=== PATIENT | female | born 1935 | race African-American/Black ===

== ENCOUNTER 2025-04-04 12:08 | Emergency (ER) | payer MEDICARE, BC, SELFPAY ==
[2025-04-04 12:09] VITALS: BP 220/99
[2025-04-04 13:06] VITALS: BP 205/68
--- NOTE | 2025-04-04 13:41 | ED.GENMED ---
History of Present Illness
General
Chief Complaint: Blood Pressure Problem
Source: patient and family (Daughter)
Time Seen by Provider: 04/04/25 13:28
History of Present Illness
History of Present Illness:
89-year-old female asymptomatic but had elevated blood pressure eating a physical and history for impending hip surgery. She missed her morning medications. Morning blood pressure medications include amlodipine 5 mg tablet before noon. Clonidine
0.2 mg p.o. before noon. Valsartan 320 mg 1 tablet before noon. Lasix 40 mg 1 p.o. daily before noon. She denies chest pain shortness of breath headache visual issues shortness of breath abdominal pain or other
Past History
Past History
ED Past Medical History: HTN, Hypercholesterolemia and NIDDM
ED Past Surgical History: Gynecological and Other (Cataract surgery)
Review of Systems
Review of Systems
All Other Systems: Not applicable
Respiratory: Reports no symptoms
Cardiac: Reports no symptoms
ABD/GI: Reports no symptoms
Phy Exam
Physical Exam
Physical Exam:
GENERAL: Alert and oriented in no apparent distress
EYE: Orbits normal.
NECK: Supple
CARDIAC: Regular rate and rhythm without any obvious murmurs.
LUNGS: Clear breath sounds,normal
ABDOMEN: Soft, without focal tenderness or distention
NEUROLOGICAL: Alert and oriented , grossly non-focal
SKIN: Warm and dry, no rash or lesion, no discoloration, skin intact.
MUSCULOSKELETAL: Mild edema
PSYCH: Normal and appropriate interaction.
Course
Orders/Labs/Results
Orders:
Orders
04/04/25 13:39
Amlodipine [Norvasc] 5 mg PO NOW STA
Clonidine [Catapres] 0.2 mg PO NOW STA
Furosemide [Lasix] 40 mg PO NOW STA
Valsartan [Diovan] 320 mg PO NOW STA
Vital Signs
Initial and Last Documented VS:
Initial Vital Signs
Temp Pulse Resp BP Pulse Ox
98.0 F 98 16 220/99 98
04/04/25 12:09 04/04/25 12:09 04/04/25 12:09 04/04/25 12:09 04/04/25 12:09
Last Documented Vital Signs
Temp Pulse Resp BP Pulse Ox
98.0 F 98 16 167/66 99
04/04/25 12:09 04/04/25 12:09 04/04/25 12:09 04/04/25 15:30 04/04/25 15:30
*Pulse Oximetry
SaO2: 98
Oxygen Mode of Delivery: Room air
Patient hypoxic: no (98)
*Critical Care Note
Total Time (30-74mins, 75-104mins- exclusive of procedures): Not Applicable
Update Note
Update Note:
Blood pressure improved. Patient stable. No symptoms. Discharged to follow-up.
ED Attending Note
-
Portions of this chart may have been created with voice recognition software.� Occasional wrong word or��sound alike� substitutions may have occurred due to the inherent limitations of voice recognition software.
Discharge Plan
Departure
Patient Disposition: Home (Routine Discharge)
Date of Disposition: 04/04/25
Time of Disposition: 15:57
Patient with high blood pressure during this ER visit?: Yes
Discharge Problem:
Blood pressure elevation, Likely secondary to medication issue, Anemia
Instructions: High Blood Pressure (DC), BLOOD PRESSURE
Prescriptions:
No Action
furosemide 40 mg Tablet
40 mg PO DAILY
anastrozole 1 mg Tablet
1 mg PO NOON
atorvastatin 10 mg Tablet
10 mg PO HS
amlodipine 5 mg Tablet
5 mg PO DAILY
tramadol 50 mg Tablet
50 mg PO Q6H PRN (Reason: pain)
clonidine HCl 0.2 mg Tablet
0.2 mg PO BID
valsartan 320 mg Tablet
320 mg PO DAILY
pioglitazone 30 mg Tablet
30 mg PO DAILY
cholecalciferol (vitamin D3) [Vitamin D3] 50 mcg (2,000 unit) Capsule
50 mcg PO DAILY
mupirocin 2 % ointment
1 applic topical BID Qty: 1 0RF
tramadol 50 mg tablet
50 mg PO Q6H PRN (Reason: 1 tab moderate pain, 2 if severe) Qty: 30 0RF
Rx Instructions:
ongoing therapy
POST-OP USE ONLY
cefadroxil 500 mg capsule
500 mg PO BID Qty: 14 0RF
Rx Instructions:
*Take w/ food
*Take w/ probiotic
*POST-OP USE
gabapentin 300 mg capsule
300 mg PO HS Qty: 10 0RF
Rx Instructions:
*POST-OP USE ONLY
ondansetron [ondansetron] 4 mg tablet,disintegrating
4 mg PO Q6H PRN (Reason: n/v) Qty: 20 0RF
Rx Instructions:
take 1/2h b/f pain med if recurrent nausea
allow to dissolve in mouth w/o water
famotidine 20 mg tablet
20 mg PO HS Qty: 30 0RF
Rx Instructions:
post-op
Referrals:
Manju Sauceda MD [Family Provider] - Follow up in 2-3 days
Activity Restrictions/Additional Instructions:
Follow-up your blood pressure and anemia with your primary physician
Interventions
Interventions:
*Risk Screen - Suicide Last Done: 04/04/25 12:09
*Neglect/Abuse Screening Last Done: 04/04/25 12:09
ED- Cardiac Assessment Last Done: 04/04/25 13:56
ED- Neurological Assessment Last Done: 04/04/25 13:56
ED- Pulmonary Assessment Last Done: 04/04/25 13:56
Discharge Date and Time
Print Language: SINHALA
[2025-04-04] MEDS: DIOVAN 320 MG PO (13:48)
[2025-04-04] MEDS: CATAPRES 0.2 MG PO (13:48)
[2025-04-04] MEDS: LASIX 40 MG PO (13:48)
[2025-04-04] MEDS: NORVASC 5 MG PO (13:48)
[2025-04-04 14:00] VITALS: BP 192/85
[2025-04-04 14:30] VITALS: BP 194/77
[2025-04-04 15:08] VITALS: BP 168/72
[2025-04-04 15:30] VITALS: BP 167/66
== END 2025-04-04 16:55 | disposition home or self-care (01) ==
LOC: EMR 12:08
PROVIDERS: EMERGENCY PHYSICIAN Emergency Medicine; FAMILY PHYSICIAN Family Medicine
DX: D64.9 Anemia, unspecified (principal); I10 Essential (primary) hypertension; E78.00 Pure hypercholesterolemia, unspecified; E11.9 Type 2 diabetes mellitus without complications; Z79.899 Other long term (current) drug therapy; Z98.49 Cataract extraction status, unspecified eye
CPT/HCPCS: 99282

== ENCOUNTER 2025-04-10 10:29 | Inpatient (IN) | payer MEDICARE, BC, SELFPAY ==
--- NOTE | 2025-02-20 13:03 | CM ---
Cm reviewed medical records. CM spoke with patient via live telephone. Patient confirmed demographics. Patient lives independently alone. Patient reports she does not have any stairs to negotiate. Patient has has a history of VN, but cannot remember
the agency. She reports it was set up by [facility].
Patient has a cane and rollator. CM encouraged patient to review educational packet from [employer] and review required DME. Patient is also going to work on making outpatient PT appointments. She reports her daughters will be able to assist with
transportation.
PLAN: Home with family support and outpatient PT.
[2025-04-04 11:35] LABS: Hematocrit 28.1 % (37.0-47.0); Hemoglobin 9.0 g/dL (12.0-16.0); Mean Corp Hgb Conc. 32.0 g/dL (33.0-37.0); Mean Corpuscular Volume 89.5 fL (81.0-99.0); Platelet Count 342 10^3/uL (130-400); Red Cell Dist. Width 15.7 % (11.5-14.5)
[2025-04-04 12:26] LABS: ALT (SGPT) 15 U/L (0-35); AST (SGOT) 22 U/L (14-36); Albumin 4.1 g/dl (3.5-5.0); Alkaline Phosphatase 97 U/L (38-126); Blood Urea Nitrogen 24 mg/dl (7-17); Calcium 10.2 mg/dl (8.4-10.2); Carbon Dioxide 27 mmol/L (22-30); Chloride 106 mmol/L (98-107); Glucose 99 mg/dl (70-99); Potassium 3.7 mmol/L (3.5-5.1); Sodium 138 mmol/L (135-145); Total Protein 6.9 g/dl (6.3-8.2); eGFR 48.63
[2025-04-04 12:39] LABS: Glycohemoglobin (HgbA1c) 6.5 % (4.0-5.6)
[2025-04-04 14:16] VITALS: BMI 30.1
[2025-04-05 16:24] VITALS: BMI 30.1
--- NOTE | 2025-04-06 16:34 | CM ---
Addendum entered by Elena Alatorre RN 04/07/25 12:16:
Patient's daughter called this CM with 4 choices for SNF. CM sent preliminary referrals via [facility] to:
[facility].
Original Note:
CM spoke with patient's daughter who stated that patient is unable to care for herself post operatively and family will not be available to assist. Daughter requested [facility]. CM advised [facility] is not the appropriate level of care. Patient would need
SNF> CM encourage daughter to review medicare.gov for further SNF choices.
CM updated [facility] with change in discharge plan.
[2025-04-10] VITALS (21 sets, daily range): BP systolic 121–213; BP diastolic 48–104; PULSE 79; O2SAT 100; BMI 30.1
[2025-04-10] MEDS: TYLENOL 650 MG PO ×3 (11:16→20:45)
[2025-04-10] MEDS: NORMOSOL-R/PLASMALYTE-A 1000 IV ×2 (11:16→17:56)
[2025-04-10 11:19] LABS: Glucose - Point of Care 101 mg/dl (70-99)
--- NOTE | 2025-04-10 11:40 | CM ---
CM spoke with patient's daughter via phone. CM confirmed that [facility] has accepted patient.
PLAN: SNF
[2025-04-10] MEDS: CELEBREX 200 MG PO (12:25)
[2025-04-10 13:21] LABS: Glucose - Point of Care 86 mg/dl (70-99)
--- NOTE | 2025-04-10 13:51 | W.PN.ORTHO ---
Today's Communication / Plan
-
d/c when stable
Assessment
.
Dressing:
Clean, dry and intact.
Assessment:
CKD 3, renal biopsy pending- no NSAIDs
Non insulin-dependent diabetes, A1c 6.5-resume oral hypoglycemics and + Novolog coverage-Cefadroxil ppx OP Rx
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
Anemia
-monitor Hgb
Plan
.
Surgery / Date: R BETZY Dr Cobian 04/10/25
DVT Prophylaxis: Aspirin
Activity:
Out of bed.
PT/OT
Discharge Plan: Home w/ VN
Vital Signs and Labs
.
Vital Signs and Labs:
Lab Results
04/04/25 11:11
04/04/25 11:11
Temp Pulse Resp BP Pulse Ox
98.5 F 100 16 176/84 99
04/10/25 11:14 04/10/25 11:14 04/10/25 11:14 04/10/25 11:14 04/10/25 11:14
--- NOTE | 2025-04-10 14:12 | W.DS.TRANS ---
DC Summary - Bit Sharpener
-
Discharge Instructions:
Sleep Apnea Risk Low
Discharge Diagnosis/Procedures R BETZY Dr Cobian 04/10/25
Diet Diabetic, Carb Controlled
Activity With Walker
Driving Restrictions No driving
Bathing Restrictions OK to Shower
Other Services PT,VN,OT
Instructions:
Stand-Alone Forms: Total Hip/Knee Replacement D/C
Changes to Home Medications: Yes
Discharge Medications:
DC Medications w/original date entered in [employer] App
amlodipine 5 mg tablet 5 mg PO DAILY 03/31/25
anastrozole 1 mg tablet 1 mg PO NOON 03/31/25
atorvastatin 10 mg tablet 10 mg PO HS 03/31/25
cholecalciferol (vitamin D3) 50 mcg (2,000 unit) capsule (Vitamin D3) 50 mcg PO DAILY 03/31/25
clonidine HCl 0.2 mg tablet 0.2 mg PO BID 03/31/25
furosemide 40 mg tablet 40 mg PO DAILY 03/31/25
pioglitazone 30 mg tablet 30 mg PO DAILY 03/31/25
cefadroxil 500 mg capsule 500 mg PO BID infection prevention #14 caps 04/04/25
famotidine 20 mg tablet 20 mg PO HS GI prophylaxis #30 tabs 04/04/25
gabapentin 300 mg capsule 300 mg PO HS sleep/pain #10 caps 04/04/25
mupirocin 2 % topical ointment 1 applic topical BID infection prevention #1 tube 04/04/25
ondansetron 4 mg disintegrating tablet 4 mg PO Q6H PRN n/v #20 tabs 04/04/25
tramadol 50 mg tablet 50 mg PO Q6H PRN 1 tab moderate pain, 2 if severe #30 tabs 04/04/25
Saccharomyces boulardii 250 mg capsule (Florastor) 250 mg PO BID #1 cap 04/10/25
acetaminophen 325 mg tablet (Tylenol) 650 mg (2 x 325 mg) PO QID #1 tab 04/10/25
aspirin 325 mg tablet 325 mg PO DAILY blood clot prevention #1 tab 04/10/25
docusate sodium 100 mg capsule (Colace) 100 mg PO BID stool softner #1 cap 04/10/25
magnesium hydroxide 400 mg/5 mL oral suspension (Milk of Magnesia) 30 ml PO HS PRN constipation #1 mL 04/10/25
sennosides 8.6 mg tablet (Senokot) 17.2 mg (2 x 8.6 mg) PO BID laxative #2 tabs 04/10/25
valsartan 320 mg tablet 320 mg PO DAILY #0 tabs 04/10/25
Home Medication Changes
cefadroxil 500 mg capsule 500 mg PO BID infection prevention #14 caps 04/04/25
famotidine 20 mg tablet 20 mg PO HS GI prophylaxis #30 tabs 04/04/25
gabapentin 300 mg capsule 300 mg PO HS sleep/pain #10 caps 04/04/25
mupirocin 2 % topical ointment 1 applic topical BID infection prevention #1 tube 04/04/25
ondansetron 4 mg disintegrating tablet 4 mg PO Q6H PRN n/v #20 tabs 04/04/25
tramadol 50 mg tablet 50 mg PO Q6H PRN 1 tab moderate pain, 2 if severe #30 tabs 04/04/25
Saccharomyces boulardii 250 mg capsule (Florastor) 250 mg PO BID #1 cap 04/10/25
acetaminophen 325 mg tablet (Tylenol) 650 mg (2 x 325 mg) PO QID #1 tab 04/10/25
aspirin 325 mg tablet 325 mg PO DAILY blood clot prevention #1 tab 04/10/25
docusate sodium 100 mg capsule (Colace) 100 mg PO BID stool softner #1 cap 04/10/25
magnesium hydroxide 400 mg/5 mL oral suspension (Milk of Magnesia) 30 ml PO HS PRN constipation #1 mL 04/10/25
sennosides 8.6 mg tablet (Senokot) 17.2 mg (2 x 8.6 mg) PO BID laxative #2 tabs 04/10/25
valsartan 320 mg tablet 320 mg PO DAILY #0 tabs 04/10/25
Pending Results: No
[2025-04-10 15:28] LABS: Glucose - Point of Care 90 mg/dl (70-99)
[2025-04-10] MEDS: SUBLIMAZE 25 MCG IV ×2 (15:51→16:01)
[2025-04-10] MEDS: DILAUDID 0.25 MG IV (16:45)
[2025-04-10] MEDS: TRANDATE 5 MG IV ×2 (16:47→17:12)
[2025-04-10] MEDS: ULTRAM 50 MG PO (17:06)
--- NOTE | 2025-04-10 17:55 | PTCARENOTE ---
Pt received from the PACU via bed. Transport was w/o incident. Pt is AAOx3, HRR, lungs are coarse anteriorly and clear b/l posterior lung nathan. Resp. easy Pulse ox 96%RA. Pt's right hip w/ scant drainage on Primaseal antibacterial dressing.
Dressing intact., Pt reports pain 4/10 at present, denies nausea. Will medicated for pain as ordered. Pt and Pt's family instructed on plan of care. Pt and family verbalized understanding of instructions. Call rizvi is within reach.
[2025-04-10 18:14] LABS: Glucose - Point of Care 130 mg/dl (70-99)
[2025-04-10] MEDS: NOVOLOG FLEXPEN-MODERATE RESISTANCE SC (18:14)
[2025-04-10] MEDS: ACTOS 30 MG PO (18:20)
[2025-04-10] MEDS: ASPIRIN 325 MG PO (18:20)
[2025-04-10] MEDS: NOVOLOG FLEXPEN 4 UNITS SC (18:49)
[2025-04-10] MEDS: BACTROBAN 2% OINTMENT 1 APPLIC NASAL (20:45)
[2025-04-10] MEDS: COLACE 100 MG PO (20:45)
[2025-04-10] MEDS: CATAPRES 0.2 MG PO (20:45)
[2025-04-10] MEDS: SENOKOT 17.2 MG PO (20:46)
[2025-04-10] MEDS: ARIMIDEX 1 MG PO (20:46)
[2025-04-10] MEDS: LIPITOR 10 MG PO (21:00)
[2025-04-10] MEDS: PEPCID 20 MG PO (21:00)
[2025-04-10] MEDS: NEURONTIN 300 MG PO (21:00)
[2025-04-10] MEDS: ANCEF 5 IV (21:05)
[2025-04-10 21:36] LABS: Glucose - Point of Care 142 mg/dl (70-99)
[2025-04-11] VITALS (13 sets, daily range): BP systolic 117–165; BP diastolic 44–70; PULSE 50–71; O2SAT 98–100
[2025-04-11] MEDS: TYLENOL 650 MG PO ×6 (00:25→20:26)
[2025-04-11] MEDS: ANCEF 5 IV (05:15)
[2025-04-11 06:42] LABS: Hematocrit 23.2 % (37.0-47.0); Hemoglobin 7.4 g/dL (12.0-16.0)
[2025-04-11 07:21] LABS: Glucose - Point of Care 149 mg/dl (70-99)
[2025-04-11 07:51] LABS: Hematocrit 22.8 % (37.0-47.0); Hemoglobin 7.5 g/dL (12.0-16.0)
[2025-04-11] MEDS: NOVOLOG FLEXPEN 4 UNITS SC ×3 (08:35→17:05)
[2025-04-11] MEDS: DIOVAN 320 MG PO (08:36)
[2025-04-11] MEDS: ACTOS 30 MG PO (08:36)
[2025-04-11] MEDS: CATAPRES 0.2 MG PO ×2 (08:36→20:23)
[2025-04-11] MEDS: SENOKOT 17.2 MG PO ×2 (08:37→20:26)
[2025-04-11] MEDS: BACTROBAN 2% OINTMENT 1 APPLIC NASAL ×2 (08:37→20:23)
[2025-04-11] MEDS: COLACE 100 MG PO ×2 (08:37→20:26)
[2025-04-11] MEDS: NORVASC 5 MG PO (08:37)
[2025-04-11] MEDS: ASPIRIN 325 MG PO (08:37)
[2025-04-11] MEDS: NOVOLOG FLEXPEN-MODERATE RESISTANCE SC ×2 (08:38→17:05)
--- NOTE | 2025-04-11 09:39 | CM ---
Cm reviewed medical records. CM met with patient in room. Plan for discharge to SNF.
PLAN: SNF, [facility].
--- NOTE | 2025-04-11 12:29 | W.PN.ORTHO ---
Today's Communication / Plan
-
-d/c when stable-home PT/OT/VN
Assessment
.
Distal Motor Intact: Yes
Dressing:
Clean, dry and intact.
Assessment:
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
Chronic Anemia-multifactorial due to renal disease and secondary to above
-Acute p/o blood loss anemia POD#1--patient will not be able to compensate due to myelodysplasia--she is symptomatic
-transfuse 2Units PRBCs
CKD 3, renal biopsy pending- no NSAIDs
Non insulin-dependent diabetes, A1c 6.5-resume oral hypoglycemics and + Novolog coverage-Cefadroxil ppx OP Rx
-sugars stable
HTN-accelerated both pre and [id number] improved which I suspect is due to blood loss
-she will receive Lasix 40mg IV b/w units of blood to avoid volume overload, worsening peripheral edema and to control BP.
Plan
.
Surgery / Date: R BETZY Dr Cobian 04/10/25
DVT Prophylaxis: Aspirin
Activity:
Out of bed.
PT/OT
Discharge Plan: Home w/ VN
Subjective
.
.:
Fatigued and weak.
Vital Signs and Labs
.
Vital Signs and Labs:
Lab Results
04/11/25 07:35
04/04/25 11:11
Temp Pulse Resp BP Pulse Ox
97.9 F 55 16 123/49 93
04/11/25 11:51 04/11/25 11:51 04/11/25 11:51 04/11/25 11:51 04/11/25 07:10
Non-invasive Hgb result: 9.0
Physical Exam
-
HEENT: No pallor, cyanosis, or jaundice. Throat clear.
NECK: Supple. No JVD.
RESPIRATORY: Lungs clear to auscultation.
CVS: S1, S2 normal. RRR.� No murmur, rub or gallop.
ABDOMEN: Soft, non-tender. No distension. BS+/normal.
EXTREMITIES: strength equal, no calf pain with palpation
HEAVY MEDIA OPERATOR: AOx3. No focal deficits. fuel quality tech grossly intact
[2025-04-11 12:36] LABS: Glucose - Point of Care 171 mg/dl (70-99)
[2025-04-11] MEDS: ARIMIDEX 1 MG PO (13:27)
[2025-04-11] MEDS: NOVOLOG FLEXPEN-MODERATE RESISTANCE 1 UNITS SC (13:29)
[2025-04-11] MEDS: LASIX 40 MG IV (13:51)
[2025-04-11 16:18] LABS: Glucose - Point of Care 135 mg/dl (70-99)
[2025-04-11] MEDS: NEURONTIN 300 MG PO (21:33)
[2025-04-11] MEDS: PEPCID 20 MG PO (21:33)
[2025-04-11] MEDS: LIPITOR 10 MG PO (21:33)
[2025-04-11 21:56] LABS: Glucose - Point of Care 177 mg/dl (70-99)
[2025-04-12] MEDS: TYLENOL PO ×2 (00:20→04:45)
[2025-04-12 07:09] LABS: Glucose - Point of Care 93 mg/dl (70-99)
[2025-04-12 07:40] VITALS: BP 133/57
[2025-04-12 08:29] LABS: Hemoglobin 9.8 g/dL (12.0-16.0)
[2025-04-12 08:50] VITALS: BP 143/62; BP 154/64; PULSE 48; PULSE 55; O2SAT 99
[2025-04-12] MEDS: NOVOLOG FLEXPEN-MODERATE RESISTANCE SC ×3 (09:13→17:07)
[2025-04-12] MEDS: COLACE 100 MG PO ×2 (09:16→20:54)
[2025-04-12] MEDS: ASPIRIN 325 MG PO (09:16)
[2025-04-12] MEDS: SENOKOT 17.2 MG PO ×2 (09:16→20:54)
[2025-04-12] MEDS: ACTOS PO (09:19)
[2025-04-12] MEDS: NOVOLOG FLEXPEN SC ×2 (09:19→12:36)
[2025-04-12] MEDS: CATAPRES PO (09:20)
[2025-04-12] MEDS: TYLENOL 650 MG PO ×4 (09:21→20:54)
[2025-04-12] MEDS: NORVASC PO (09:21)
[2025-04-12] MEDS: DIOVAN PO (11:41)
[2025-04-12 11:45] VITALS: BP 152/53; PULSE 60; O2SAT 97
[2025-04-12 12:05] LABS: Glucose - Point of Care 128 mg/dl (70-99)
--- NOTE | 2025-04-12 12:23 | W.PN.ORTHO ---
Today's Communication / Plan
-
d/c am if stable
Assessment
.
Distal Motor Intact: Yes
Dressing:
Clean, dry and intact.
Assessment:
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
Chronic Anemia-multifactorial due to renal disease and secondary to above
-Acute p/o blood loss anemia POD#1--patient will not be able to compensate due to myelodysplasia--she is symptomatic
-transfuse 2Units PRBCs-HGB stable-repeat in am POD#3
CKD 3, renal biopsy pending- no NSAIDs
Non insulin-dependent diabetes, A1c 6.5-resume oral hypoglycemics and + Novolog coverage-Cefadroxil ppx OP Rx
-sugars stable
HTN-accelerated both pre and [id number] improved which I suspect is due to blood loss
-she will receive Lasix 40mg IV b/w units of blood to avoid volume overload, worsening peripheral edema and to control BP.
Plan
.
Surgery / Date: R BETZY Dr Cobian 04/10/25
DVT Prophylaxis: Aspirin
Activity:
Out of bed.
PT/OT
Discharge Plan: SNF
Subjective
.
.:
Patient resting comfortably.
Vital Signs and Labs
.
Vital Signs and Labs:
Lab Results
04/12/25 06:21
04/04/25 11:11
Temp Pulse Resp BP Pulse Ox
97.5 F 57 15 133/57 95
04/12/25 07:40 04/12/25 07:40 04/12/25 07:40 04/12/25 07:40 04/11/25 23:18
Non-invasive Hgb result: 11.9
Physical Exam
-
HEENT: No pallor, cyanosis, or jaundice. Throat clear.
NECK: Supple. No JVD.
RESPIRATORY: Lungs clear to auscultation.
CVS: S1, S2 normal. RRR.� No murmur, rub or gallop.
ABDOMEN: Soft, non-tender. No distension. BS+/normal.
EXTREMITIES: strength equal, no calf pain with palpation
CLOTH CLASSER: AOx3. No focal deficits. computer forensics technician grossly intact
[2025-04-12] MEDS: LASIX 20 MG PO (12:43)
[2025-04-12] MEDS: ARIMIDEX 1 MG PO (12:43)
--- NOTE | 2025-04-12 13:22 | CM ---
CM left message for admission coordinator at [facility].
PLAN: DC to [facility].
--- NOTE | 2025-04-12 13:50 | CM ---
Addendum entered by Elena Alatorre RN 04/13/25 09:23:
Cm updated patient's daughter with discharge plan.
Addendum entered by Elena Alatorre RN 04/12/25 13:57:
Cm left message to updated Rosemarie, daughter, with discharge plans.
Original Note:
[facility]
Report:
[phone]

Admission coordinator is requesting a 12:30 product picker. CM update community health program representative.
[2025-04-12 15:40] VITALS: BP 153/59
[2025-04-12 16:58] LABS: Glucose - Point of Care 118 mg/dl (70-99)
[2025-04-12] MEDS: CATAPRES 0.2 MG PO (20:54)
[2025-04-12] MEDS: NEURONTIN 300 MG PO (21:52)
[2025-04-12] MEDS: LIPITOR 10 MG PO (21:52)
[2025-04-12] MEDS: PEPCID 20 MG PO (21:52)
[2025-04-12 22:19] LABS: Glucose - Point of Care 156 mg/dl (70-99)
[2025-04-12 23:30] VITALS: BP 118/51
[2025-04-13] MEDS: TYLENOL 650 MG PO ×3 (00:14→09:15)
[2025-04-13 07:00] VITALS: BP 149/60
[2025-04-13 07:43] LABS: Glucose - Point of Care 94 mg/dl (70-99)
[2025-04-13 07:52] LABS: Hematocrit 28.0 % (37.0-47.0); Hemoglobin 9.6 g/dL (12.0-16.0)
[2025-04-13] MEDS: NOVOLOG FLEXPEN-MODERATE RESISTANCE SC (08:18)
[2025-04-13] MEDS: ASPIRIN 325 MG PO (09:14)
[2025-04-13] MEDS: COLACE 100 MG PO (09:14)
[2025-04-13] MEDS: SENOKOT 17.2 MG PO (09:14)
[2025-04-13] MEDS: LASIX 20 MG PO (09:14)
[2025-04-13] MEDS: NORVASC PO (09:15)
[2025-04-13] MEDS: CATAPRES PO (09:15)
[2025-04-13] MEDS: DIOVAN 320 MG PO (09:15)
[2025-04-13] MEDS: ACTOS PO (09:15)
--- NOTE | 2025-04-13 11:19 | W.PN.ORTHO ---
Today's Communication / Plan
-
d/c
Assessment
.
Distal Motor Intact: Yes
Dressing:
Clean, dry and intact.
Assessment:
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
Chronic Anemia-multifactorial due to renal disease and secondary to above
-Acute p/o blood loss anemia POD#1--patient will not be able to compensate due to myelodysplasia--she is symptomatic
-transfuse 2Units PRBCs-HGB stable
CKD 3, renal biopsy pending- no NSAIDs
Non insulin-dependent diabetes, A1c 6.5-resume oral hypoglycemics and + Novolog coverage-Cefadroxil ppx OP Rx
-sugars stable
HTN-accelerated both pre and [id number] improved which I suspect is due to blood loss
-she will receive Lasix 40mg IV b/w units of blood to avoid volume overload, worsening peripheral edema and to control BP.
-BP stable
Plan
.
Surgery / Date: R BETZY Cobian 04/10/25
DVT Prophylaxis: Aspirin
Activity:
Out of bed.
PT/OT
Discharge Plan: SNF
Subjective
.
.:
Patient resting comfortably.
Vital Signs and Labs
.
Vital Signs and Labs:
Lab Results
04/13/25 06:50
04/04/25 11:11
Temp Pulse Resp BP Pulse Ox
98.5 F 75 16 149/60 94
04/13/25 07:00 04/13/25 09:14 04/13/25 07:00 04/13/25 09:14 04/13/25 07:00
Non-invasive Hgb result: 8.7
Physical Exam
-
HEENT: No pallor, cyanosis, or jaundice. Throat clear.
NECK: Supple. No JVD.
RESPIRATORY: Lungs clear to auscultation.
CVS: S1, S2 normal. RRR.� No murmur, rub or gallop.
ABDOMEN: Soft, non-tender. No distension. BS+/normal.
EXTREMITIES: strength equal, no calf pain with palpation
UPSETTING MACHINE OPERATOR: AOx3. No focal deficits. learning center instructor grossly intact
[2025-04-13] MEDS: CYKLOKAPRON 1300 MG PO (11:24)
[2025-04-13 12:06] LABS: Glucose - Point of Care 76 mg/dl (70-99)
[2025-04-13] MEDS: PREVNAR 20 0.5 ML IM (12:15)
[2025-04-13 12:20] VITALS: BP 148/72
== END 2025-04-13 12:39 | DRG 470 ==
LOC: 2 SOUTH 10:29
PROVIDERS: Physician Assistant Medical; ADMITTING PHYSICIAN Specialist; FAMILY PHYSICIAN Family Medicine
PROC: 0SR90JA Replacement of Right Hip Joint with Synthetic Substitute, Uncemented, Open Approach (ICD-10-PCS; 2025-04-10)
PROC: 30233N1 Transfusion of Nonautologous Red Blood Cells into Peripheral Vein, Percutaneous Approach (ICD-10-PCS; 2025-04-11)
DX: M16.11 Unilateral primary osteoarthritis, right hip (principal); D62 Acute posthemorrhagic anemia; D47.2 Monoclonal gammopathy; N18.30 Chronic kidney disease, stage 3 unspecified; E11.22 Type 2 diabetes mellitus with diabetic chronic kidney disease; I12.9 Hypertensive chronic kidney disease with stage 1 through stage 4 chronic kidney disease, or unspecified chronic kidney disease; Z68.30 Body mass index [BMI] 30.0-30.9, adult; E66.9 Obesity, unspecified; E78.5 Hyperlipidemia, unspecified; Z90.11 Acquired absence of right breast and nipple; Z85.3 Personal history of malignant neoplasm of breast; F41.9 Anxiety disorder, unspecified; Z87.891 Personal history of nicotine dependence; Z92.3 Personal history of irradiation
CPT/HCPCS: 36415; 73502; 80053; 82962; 83036; 85014; 85018; 85027; 86850; 86900; 86901; 86920; 87070; 90677; 97110; 97116; 97162; 97166; 97530; 97535; C1713; C1776; G0009; P9016